=== PATIENT | male | born 1965 | race African-American/Black ===

== ENCOUNTER 2017-12-12 22:46 | Emergency (ER) | payer BC, MEDICAID, OTHER, SELFPAY ==
--- NOTE | 2017-12-12 23:05 | EDM.PDOC ---
ED HPI GENERAL MEDICAL PROBLEM - General Chief Complaint: General Stated Complaint: TOOTH PAIN Time Seen by Provider: 12/12/17 22:46 Source of Information: Reports: Patient History Limitations: Reports: No Limitations - History of Present Illness INITIAL COMMENTS - FREE TEXT/NARRATIVE: 52 y.o.b.m came to the ed a few days after he was seen by his surgeon for dental repair. Pt says he has severe pain at his right lower malar, where the repair was taken place. No other acute medial issues. H/O Drug abuse. BP 146/92 RR 20 O2 sat 96% on RA Temp 36.2 Onset: Today Onset Date: 12/10/17 Onset Time: 06:00 Duration: Day(s):, Getting Worse, Intermittent Location: Reports: Face Quality: Reports: Ache, Burning, Dull, Same as Previous Episode, Stabbing Severity: Moderate Improves with: Reports: Medication Worsens with: Reports: Movement Context: Reports: Other (poor dentition) Associated Symptoms: Reports: Other (H/O Drug abuse) tooth pain Pain Score (Numeric/FACES): 6 - Related Data Allergies Allergy/AdvReac Type Severity Reaction Status Date / Time No Known Allergies Allergy Verified 12/12/17 22:58 Home Meds: Home Meds Aspirin [Halfprin] 81 mg PO DAILY 11/20/16 [History] Ibuprofen [IJD: Ibuprofen] 800 mg PO TIDMEALS PRN 11/20/16 [History] Insulin Aspart [Novolog Flexpen] 12 unit SQ TIDMEALS 11/20/16 [History] Insulin Detemir [Levemir Flextouch] 36 unit SQ BEDTIME 11/20/16 [History] Lisinopril/Hydrochlorothiazide [Lisinopril-Hctz 20-12.5 mg Tab] 1 each PO DAILY 11/20/16 [History] Multivitamin with Minerals [Multiple Vitamin] 1 tab PO DAILY 11/20/16 [History] Simvastatin [Zocor] 40 mg PO BEDTIME 11/20/16 [History] metFORMIN [Glucophage] 1,000 mg PO BIDMEALS 11/20/16 [History] Amoxicillin/Potassium Clav [Augmentin 875-125 Tablet] 1 each PO BID #20 tablet 12/12/17 [Rx] Ibuprofen [Motrin] 600 mg PO TID PRN #30 tab 12/12/17 [Rx] traMADol [Ultram] 50 mg PO Q6H PRN #4 tab 12/12/17 [Rx] Past Medical History Cardiovascular History: Reports: High Cholesterol, Hypertension Musculoskeletal History: Reports: Back Pain, Chronic Endocrine/Metabolic History: Reports: Diabetes, Type II - Infectious Disease History Infectious Disease History: Reports: Chicken Pox Social & Family History - Tobacco Use Smoking Status *Q: Former Smoker Years of Tobacco use: 35 Used Tobacco, but Quit: Yes Month Tobacco Last Used: 1 YEAR AGO, NOW DOES VAPING - Caffeine Use Caffeine Use: Reports: Soda - Recreational Drug Use Recreational Drug Use: No ED ROS GENERAL - Review of Systems Review Of Systems: See Below Constitutional: Reports: No Symptoms HEENT: Reports: Dental Pain Respiratory: Reports: No Symptoms Cardiovascular: Reports: No Symptoms Endocrine: Reports: No Symptoms GI/Abdominal: Reports: No Symptoms : Reports: No Symptoms Musculoskeletal: Reports: No Symptoms Skin: Reports: No Symptoms Neurological: Reports: No Symptoms Psychiatric: Reports: No Symptoms Hematologic/Lymphatic: Reports: No Symptoms Immunologic: Reports: No Symptoms ED EXAM, GENERAL - Physical Exam Exam: See Below Exam Limited By: No Limitations General Appearance: Alert, WD/WN, Mild Distress Eye Exam: Bilateral Eye: Normal Inspection Ears: Normal External Exam Ear Exam: Bilateral Ear: Auricle Normal Nose: Normal Inspection, Normal Mucosa Throat/Mouth: Normal Lips, Normal Voice, No Airway Compromise, Other (poor dentition, no obvious injuries) Head: Atraumatic, Normocephalic Neck: Normal Inspection, Supple Respiratory/Chest: No Respiratory Distress, Lungs Clear, Normal Breath Sounds Cardiovascular: Normal Peripheral Pulses, Regular Rate, Rhythm, No Edema, No Gallop Peripheral Pulses: 1+: Radial (L) GI/Abdominal: Normal Bowel Sounds, Soft (Male) Exam: Deferred Rectal (Males) Exam: Deferred Back Exam: Normal Inspection, Full Range of Motion Extremities: Normal Inspection, Normal Range of Motion, Non-Tender, No Pedal Edema Neurological: Alert, Oriented, CN II-XII Intact, Normal Cognition, Normal Gait Psychiatric: Normal Affect, Normal Mood Skin Exam: Warm, Dry, Intact, Normal Color, No Rash Lymphatic: No Adenopathy Course - Vital Signs Text/Narrative:: 52 y.o.b.m came to the ed a few days after he was seen by his surgeon for dental repair. Pt says he has severe pain at his right lower malar, where the repair was taken place. No other acute medial issues. H/O Drug abuse. BP 146/92 RR 20 O2 sat 96% on RA Temp 36.2. Pt was on Abx, ran out. PE: WNWD B M with dental pain, poor dentition Impression: Toothache, poor dentition, gingivitis Tx: Motrin Abx Reexam: Improved Plan: D/C with instructions Last Recorded V/S: Last Vital Signs Temp 36.2 C 12/12/17 22:55 Pulse 77 12/12/17 22:55 Resp 20 12/12/17 22:55 BP 146/95 H 12/12/17 22:55 Pulse Ox 100 12/12/17 22:55 - Orders/Labs/Meds Meds: Medications Discontinued Medications Generic Name Dose Route Start Last Admin Trade Name Freq PRN Reason Stop Dose Admin Ibuprofen 600 mg 12/12/17 23:06 12/12/17 23:10 Motrin PO 12/12/17 23:07 600 mg ONETIME ONE Administration Departure - Departure Time of Disposition: 23:00 Disposition: Home, Self-Care 01 Condition: Good Clinical Impression: Atypical toothache - Discharge Information Prescriptions: Amoxicillin/Potassium Clav [Augmentin 875-125 Tablet] 1 each PO BID #20 tablet Ibuprofen [Motrin] 600 mg PO TID PRN #30 tab PRN Reason: pain and swelling traMADol [Ultram] 50 mg PO Q6H PRN #4 tab PRN Reason: severe pain only Referrals: Jerome Penaloza MD [Primary Care Provider] - Forms: ED Department Discharge Additional Instructions: Please take the the pain meds and Abx as recommended. Meds to be picked up [facility] tomorrow. Please come back if your symptoms get worse acutely.
[2017-12-12] MEDS ORDERED: Ibuprofen 600 MG Tab PO ONE (23:06)
[2017-12-13 00:13] VITALS: BP 146/95
== END 2017-12-12 23:13 | disposition home or self-care (01) ==
LOC: FB.ED 22:46
DX: K05.10 Chronic gingivitis, plaque induced (principal); I10 Essential (primary) hypertension; E78.00 Pure hypercholesterolemia, unspecified; E11.9 Type 2 diabetes mellitus without complications; Z87.891 Personal history of nicotine dependence; Z79.4 Long term (current) use of insulin; Z79.82 Long term (current) use of aspirin; Z79.899 Other long term (current) drug therapy
CPT/HCPCS: 99282; A9270

== ENCOUNTER 2019-07-17 17:20 | Emergency (ER) | payer MEDICAID ==
[2019-07-17] MEDS ORDERED: Ketorolac 60 MG/2 ML SDV IM ONE (17:50)
[2019-07-17] MEDS ORDERED: Cyclobenzaprine 10 MG Tab PO ONE (17:50)
[2019-07-17] MEDS ORDERED: Acetaminophen/HYDROcodone 325-5 MG Tab PO ONE (17:52)
--- NOTE | 2019-07-17 18:28 | EDM.PDOC ---
ED HPI GENERAL MEDICAL PROBLEM - General Chief Complaint: Back Pain or Injury Stated Complaint: BACK PAIN Time Seen by Provider: 07/17/19 18:05 Source of Information: Reports: Patient History Limitations: Reports: No Limitations - History of Present Illness INITIAL COMMENTS - FREE TEXT/NARRATIVE: Patient is a 53 YO BM who presented to the ED because of low back pain. He lifted some heavy objects yesterday and today he woke up with low back pain. The pain is sharp,7/10, over the lumbar area. - Related Data Allergies Allergy/AdvReac Type Severity Reaction Status Date / Time No Known Allergies Allergy Verified 07/17/19 18:21 Home Meds: Home Meds Aspirin [Halfprin] 81 mg PO DAILY 11/20/16 [History] Insulin Aspart [Novolog Flexpen] 25 unit SQ TIDMEALS 11/20/16 [History] Insulin Detemir [Levemir Flextouch] 50 unit SQ BEDTIME 11/20/16 [History] Lisinopril/Hydrochlorothiazide [Lisinopril-Hctz 20-12.5 mg Tab] 1 each PO DAILY 11/20/16 [History] Multivitamin with Minerals [Multiple Vitamin] 1 tab PO DAILY 11/20/16 [History] Simvastatin [Zocor] 40 mg PO BEDTIME 11/20/16 [History] metFORMIN [Glucophage] 1,000 mg PO BIDMEALS 11/20/16 [History] Ibuprofen [Motrin] 600 mg PO TID PRN #30 tab 12/12/17 [Rx] Cyclobenzaprine [Flexeril] 10 mg PO TID PRN #15 tab 07/17/19 [Rx] Ibuprofen [Motrin] 800 mg PO TID PRN #30 tablet 07/17/19 [Rx] Past Medical History Cardiovascular History: Reports: High Cholesterol, Hypertension Musculoskeletal History: Reports: Back Pain, Chronic Endocrine/Metabolic History: Reports: Diabetes, Type II - Infectious Disease History Infectious Disease History: Reports: Chicken Pox - Past Surgical History HEENT Surgical History: Reports: Oral Surgery Social & Family History - Tobacco Use Smoking Status *Q: Never Smoker Second Hand Smoke Exposure: No - Caffeine Use Caffeine Use: Reports: None - Recreational Drug Use Recreational Drug Use: No ED ROS GENERAL - Review of Systems Review Of Systems: See Below Constitutional: Reports: No Symptoms HEENT: Reports: No Symptoms Respiratory: Reports: No Symptoms Cardiovascular: Reports: No Symptoms Endocrine: Reports: No Symptoms GI/Abdominal: Reports: No Symptoms : Reports: Hematuria Musculoskeletal: Reports: No Symptoms, Back Pain Skin: Reports: No Symptoms Neurological: Reports: No Symptoms Psychiatric: Reports: No Symptoms ED EXAM, UPPER BACK/NECK PAIN - Physical Exam Exam: See Below Exam Limited By: No Limitations General Appearance: Alert, WD/WN, No Apparent Distress Eye Exam: Bilateral Eye: PERRL Ears Exam: Normal External Exam, Normal Canal, Hearing Grossly Normal Nose Exam: Normal Inspection, Normal Mucousa, No Blood Throat/Mouth Exam: Normal Inspection, Normal Lips, Normal Teeth, Normal Oropharynx Head Exam: Atraumatic, Normocephalic Neck Exam: Non-Tender, Full Range of Motion, Normal Alignment Cardiovascular/Respiratory: Regular Rate, Rhythm, Normal Peripheral Pulses, Normal Breath Sounds, No Respiratory Distress GI/Abdominal: Normal Bowel Sounds, Soft, Non-Tender, No Organomegaly, No Distention, No Abnormal Bruit Extremities: Normal Inspection, Other (tenderness over the beverley,bar area with muscle spasm.) 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, No Motor/Sensory Deficits, Normal Mood/ Affect, Oriented x 3 Course - Vital Signs Text/Narrative:: Toradol 60 mg IM x1 Last Recorded V/S: Last Vital Signs Temp 36.7 C 07/17/19 18:00 Pulse 85 07/17/19 18:00 Resp 18 07/17/19 18:00 BP 136/78 07/17/19 18:00 Pulse Ox - Orders/Labs/Meds Meds: Medications Discontinued Medications Generic Name Dose Route Start Last Admin Trade Name Marilyn PRN Reason Stop Dose Admin Hydrocodone Bitart/Acetaminophen 2 tab 07/17/19 17:52 07/17/19 18:06 [place] 325-5 Mg PO 07/17/19 17:53 2 tab ONETIME ONE Administration Cyclobenzaprine HCl 10 mg 07/17/19 17:50 07/17/19 18:06 Flexeril PO 07/17/19 17:51 10 mg ONETIME ONE Administration Ketorolac Tromethamine 60 mg 07/17/19 17:50 07/17/19 18:05 Toradol IM 07/17/19 17:51 60 mg ONETIME ONE Administration Departure - Departure Time of Disposition: 18:25 Disposition: Home, Self-Care 01 Condition: Good Clinical Impression: Muscle strain - Discharge Information *PRESCRIPTION DRUG MONITORING PROGRAM REVIEWED*: No *COPY OF PRESCRIPTION DRUG MONITORING REPORT IN PATIENT [place]: No Prescriptions: Cyclobenzaprine [Flexeril] 10 mg PO TID PRN #15 tab PRN Reason: Pain Ibuprofen [Motrin] 800 mg PO TID PRN #30 tablet PRN Reason: Pain Instructions: Muscle Strain Referrals: Jerome Penaloza MD [Primary Care Provider] - Forms: ED Department Discharge Additional Instructions: Please read discharge instructions on muscle strain apply ice or haet which ever you prefer Take ibuprofen 800 mg with tylenol 1000 mg every 8 hours as needed for pain Flexeril 10 mg every 8 hours as needed for muscle spasm
[2019-07-17 18:57] VITALS: BP 136/78; PULSE 85
== END 2019-07-17 18:40 | disposition home or self-care (01) ==
LOC: FB.ED 17:20
DX: S39.012A Strain of muscle, fascia and tendon of lower back, initial encounter (principal); I10 Essential (primary) hypertension; E11.9 Type 2 diabetes mellitus without complications; E78.5 Hyperlipidemia, unspecified; Z79.4 Long term (current) use of insulin; Z79.899 Other long term (current) drug therapy; X50.0XXA Overexertion from strenuous movement or load, initial encounter
CPT/HCPCS: 96372; 99283; A9270; J1885

== ENCOUNTER → 2019-08-31 | Outpatient (CLI) | payer MEDICAID ==
[~2019-08-31] MED LIST: Gadoteridol 279.3 MG/ML 20 ML SDV IV ONE
== END ==
LOC: FB.MRI 09:21
PROVIDERS: ATTEND Family Medicine
DX: R10.11 Right upper quadrant pain (principal); K76.0 Fatty (change of) liver, not elsewhere classified; N28.1 Cyst of kidney, acquired
CPT/HCPCS: 74183; A9579

== ENCOUNTER 2022-02-14 11:02 | Emergency (ER) | payer MEDICAID ==
[2022-02-14 11:15] VITALS: BP 168/99; PULSE 73
[2022-02-14] MEDS ORDERED: Aspirin 81 MG Tab.Chew PO ONE (11:18)
== END 2022-02-14 13:20 | disposition home or self-care (01) ==
LOC: FB.ED 11:02
DX: M94.0 Chondrocostal junction syndrome [Tietze] (principal); E78.00 Pure hypercholesterolemia, unspecified; I10 Essential (primary) hypertension; E11.9 Type 2 diabetes mellitus without complications; Z79.4 Long term (current) use of insulin; Z79.82 Long term (current) use of aspirin; Z79.899 Other long term (current) drug therapy
CPT/HCPCS: 36415; 83880; 84484; 85610; 85730; 93005; 99281; 99285-25

== ENCOUNTER 2024-06-07 01:45 | Emergency (ER) | payer OTHER, MEDICAID ==
[2024-06-07 02:13] VITALS: BP 136/81; PULSE 74
[2024-06-07] MEDS: Diphtheria,Pertussis(Acell),Tetanus Vaccine 0.5 ML Syringe IM ONE (02:18)
== END 2024-06-07 02:30 | disposition home or self-care (01) ==
LOC: FB.ED 01:45
DX: S61.012A Laceration without foreign body of left thumb without damage to nail, initial encounter (principal); E78.00 Pure hypercholesterolemia, unspecified; I10 Essential (primary) hypertension; E11.9 Type 2 diabetes mellitus without complications; F17.210 Nicotine dependence, cigarettes, uncomplicated; Z79.82 Long term (current) use of aspirin; Z79.4 Long term (current) use of insulin; Z23 Encounter for immunization; Z79.899 Other long term (current) drug therapy; W26.8XXA Contact with other sharp object(s), not elsewhere classified, initial encounter; Y99.0 Civilian activity done for income or pay; Y92.89 Other specified places as the place of occurrence of the external cause
CPT/HCPCS: 12001; 90471; 90715; 99282-25; 99283

== ENCOUNTER 2024-11-03 12:53 | Emergency (ER) | payer MEDICAID, OTHER ==
[2024-11-03 13:07] VITALS: BP 176/94; PULSE 74
[2024-11-03 13:40] LABS: HEMATOCRIT 38.9 % (38.3-50.1); HEMOGLOBIN 13.3 g/dL (12.9-17.7); MEAN CORPUSCULAR HEMOGLOBIN 31.8 pg (27.0-33.3); MEAN CORPUSCULAR HGB CONC 34.2 g/dL (28.7-35.3); MEAN CORPUSCULAR VOLUME 92.9 fL (80.8-98.7); PLATELET COUNT,PLT 267 x10(3)uL (117-477); RED BLOOD CELL COUNT 4.18 x10(6)uL (3.90-5.90); RED CELL DISTRIBUTION WIDTH 14.7 % (12.4-15.0); WHITE BLOOD CELL COUNT,WBC 5.4 x10-3/uL (3.2-10.1)
[2024-11-03 13:43] LABS: BLOOD UREA NITROGEN,BUN 18 mg/dL (7-18); CALCIUM 9.3 mg/dL (8.6-10.2); CARBON DIOXIDE,CO2 30 mmol/L (21-32); CHLORIDE,CL 103 mmol/L (100-110); CREATININE 1.2 mg/dL (0.70-1.30); ESTIMATED GFR 69 mL/min (>60); GLUCOSE RANDOM 140 mg/dL (80-116); POTASSIUM,K 3.6 mmol/L (3.5-5.3); SODIUM,NA 142 mmol/L (135-145)
[2024-11-03 13:49] LABS: A/G RATIO 0.9; ALANINE AMINOTRANSFERASE,ALT 37 U/L (12-36); ALBUMIN 3.3 g/dL (3.2-4.6); ALKALINE PHOSPHATASE 73 IU/L (56-112); ASPARTATE AMNIOTRANSFERASE,AST 18 IU/L (5-25); BILIRUBIN TOTAL 0.7 mg/dL (0.1-1.3)
[2024-11-03 13:57] LABS: BASOPHILS PERCENT MAN 1 % (0-2); EOSINOPHILS PERCENT MAN 5 % (0-5); LYMPHOCYTES PERCENT MAN 35 % (13-37); MONOCYTES PERCENT MAN 11 % (4-12); SEG NEUTROPHILS PERCENT MAN 48 % (46-82)
[2024-11-03] MEDS: Ketorolac 30 MG/ML SDV IM ONE (14:19)
== END 2024-11-03 14:26 | disposition home or self-care (01) ==
LOC: FB.ED 12:53
DX: R07.89 Other chest pain (principal); I10 Essential (primary) hypertension; E78.00 Pure hypercholesterolemia, unspecified; E11.9 Type 2 diabetes mellitus without complications; Z79.84 Long term (current) use of oral hypoglycemic drugs; Z79.899 Other long term (current) drug therapy; Z79.82 Long term (current) use of aspirin; Z79.4 Long term (current) use of insulin
CPT/HCPCS: 36415; 80053; 84484; 85025; 93005; 96372; 99285; J1885

== ENCOUNTER 2025-07-31 04:40 | Emergency (ER) | payer OTHER, MEDICAID ==
[2025-07-31 05:33] VITALS: BP 136/83; PULSE 65
== END 2025-07-31 05:25 | disposition home or self-care (01) ==
LOC: FB.ED 04:40
DX: M25.551 Pain in right hip (principal); I10 Essential (primary) hypertension; E78.00 Pure hypercholesterolemia, unspecified; E11.9 Type 2 diabetes mellitus without complications; Z79.4 Long term (current) use of insulin; Z79.82 Long term (current) use of aspirin; Z79.84 Long term (current) use of oral hypoglycemic drugs; Z79.899 Other long term (current) drug therapy
CPT/HCPCS: 99283; A9270

== ENCOUNTER 2025-08-13 03:07 | Emergency (ER) | payer OTHER, MEDICAID ==
[2025-08-13 03:20] VITALS: BP 131/77; PULSE 60
[2025-08-13] MEDS: Ketorolac 30 MG/ML SDV IM ONE (03:26)
[2025-08-13 03:29] LABS: BASOPHILS ABSOLUTE AUTO 0.0 x10-3/uL (0.0-0.3); BASOPHILS PERCENT AUTO 0.6 % (0.3-3.8); EOSINOPHILS ABSOLUTE AUTO 0.1 x10-3/uL (0.0-0.6); EOSINOPHILS PERCENT AUTO 2.3 % (0.1-6.8); LYMPHOCYTES ABSOLUTE AUTO 1.8 x10-3/uL (0.5-4.5); LYMPHOCYTES PERCENT AUTO 35.4 % (15.8-45.3); MEAN PLATELET VOLUME 9.6 fL (6.7-11.0); MONOCYTES ABSOLUTE AUTO 0.5 x10-3/uL (0.0-1.2); MONOCYTES PERCENT AUTO 9.8 % (5.5-15.2); NEUTROPHILS ABSOLUTE AUTO 2.7 x10-3/uL (1.7-6.9); NEUTROPHILS PERCENT AUTO 51.9 % (40.3-71.8); PLATELET COUNT,PLT 284 x10(3)uL (117-477); RED BLOOD CELL COUNT 4.29 x10(6)uL (3.90-5.90); RED CELL DISTRIBUTION WIDTH 14.3 % (12.4-15.0); WHITE BLOOD CELL COUNT,WBC 5.2 x10-3/uL (3.2-10.1)
[2025-08-13 03:31] LABS: BLOOD UREA NITROGEN,BUN 16 mg/dL (7-18); CARBON DIOXIDE,CO2 28 mmol/L (21-32); CHLORIDE,CL 105 mmol/L (100-110); CREATININE 1.2 mg/dL (0.70-1.30); ESTIMATED GFR 69 mL/min (>60); GLUCOSE RANDOM 150 mg/dL (80-116); POTASSIUM,K 3.6 mmol/L (3.5-5.3); SODIUM,NA 142 mmol/L (135-145)
[2025-08-13 03:36] LABS: A/G RATIO 1.0; ALANINE AMINOTRANSFERASE,ALT 48 U/L (12-36); ASPARTATE AMNIOTRANSFERASE,AST 27 IU/L (5-25); BILIRUBIN TOTAL 1.0 mg/dL (0.1-1.3); PROTEIN TOTAL,TP 6.9 g/dL (6.0-8.0)
== END 2025-08-13 03:47 | disposition home or self-care (01) ==
LOC: FB.ED 03:07
DX: R07.89 Other chest pain (principal); I10 Essential (primary) hypertension; E11.9 Type 2 diabetes mellitus without complications; E78.00 Pure hypercholesterolemia, unspecified; Z79.4 Long term (current) use of insulin; Z79.82 Long term (current) use of aspirin; Z79.84 Long term (current) use of oral hypoglycemic drugs; Z79.899 Other long term (current) drug therapy
CPT/HCPCS: 36415; 71045; 80053; 83880; 85025; 96372; 99283; 99284; J1885